=== PATIENT | female | born 1980 | race Asian ===

== ENCOUNTER 2020-09-10 00:31 | Emergency (ER) | payer OTHER ==
[~2020-09-10] VITALS: Ht 167.6 cm; Wt 133.8 kg
[2020-09-10 02:27] VITALS: BP 142/85; TEMP 98.8
== END 2020-09-10 04:09 | disposition home or self-care (01) ==
LOC: ED 00:31
DX: T78.49XA Other allergy, initial encounter (principal); T78.1XXA Other adverse food reactions, not elsewhere classified, initial encounter
CPT/HCPCS: 96372; 99283; J1200; J2920

== ENCOUNTER 2022-03-11 09:36 | Outpatient (CLI) | payer OTHER | END 2022-03-11 19:34 | disposition home or self-care (01) | LOC: MAMMO 09:36 | PROVIDERS: ATTEND Nurse Practitioner Family | DX: Z12.31 Encounter for screening mammogram for malignant neoplasm of breast (principal) ==

== ENCOUNTER 2022-05-02 15:00 | Outpatient (CLI) | payer OTHER | END 2022-05-02 19:53 | disposition home or self-care (01) | LOC: US 15:00 | PROVIDERS: ATTEND Nurse Practitioner Family | DX: N63.10 Unspecified lump in the right breast, unspecified quadrant (principal) ==